=== PATIENT | female | born 1980 | race Caucasian/White ===

== ENCOUNTER → 2016-12-12 | Day surgery (SDC) | payer BC, OTHER ==
[~2016-12-12] MED LIST: APREPITANT 40 MG CAP ONE; BUPIVACAINE LIPOSOME PF 1.3% 20 ML VIAL ONE; BUPIVACAINE/EPINEPHRINE 0.25% PF 30 ML VIAL ONE; HYDR-3366 PO; IBUP-232 PO; KETOROLAC TROMETHAMINE 30 MG/ML (IVP) VIAL IV PUSH ONE; LACTATED RINGER'S 1,000 ML BAG IV ONE; LACTATED RINGER'S 1000 ML INJ 1,000 ML ONE; MIDAZOLAM HCL 2 MG/2 ML VIAL ONE; MORPHINE SULFATE 4 MG/ML INJ ONE; ONDANSETRON HCL 4 MG/2 ML VIAL IV PUSH ONE; OXYC1TAB63 PO; PROPOFOL 200 MG/20 ML AMP IV ONE; SODIUM CHLORIDE 0.9% INJ 10 ML ONE; ceFAZolin 2 GM PREMIX 50 ML ONE
--- NOTE | 2016-12-12 13:40 | TN ---
cc: SAURABH MÉNDEZ M.D. DATE OF SURGERY: 12/12/2016 PREOPERATIVE DIAGNOSIS Bilateral inguinal hernia and epigastric hernia. POSTOPERATIVE DIAGNOSIS Bilateral femoral hernia and epigastric hernia. PROCEDURE Laparoscopic repair bilateral inguinal hernia with mesh, open repair epigastric hernia with approximation of diastasis recti. SURGEON Dr. Saurabh Méndez. ANESTHESIA General. INDICATIONS A very pleasant 36-year-old woman who has had five full-term pregnancies, has developed inguinal and ventral supraumbilical bulges. Her bilateral inguinal hernia bulge is slightly larger on the left than the right. INTRAOPERATIVE FINDINGS Large left femoral hernia. Smaller yet present right femoral hernia. Small umbilical and epigastric hernias containing preperitoneal fatty tissue. Estimated blood loss was less than 5 mL. Periumbilical diastasis recti present and repaired with primary repair of epigastric and umbilical hernia defects. DESCRIPTION OF PROCEDURE IN DETAIL The patient was identified as Glenys Wen, taken to the operating room and placed in the supine position. Sequential compression devices were placed on bilateral lower extremities. Following induction of adequate general anesthesia the patient's abdomen was prepped and draped in usual sterile fashion with Betadine. A time-out procedure was performed. Following completion of time-out procedure to everyone's satisfaction within the room a proposed infraumbilical curvilinear incision was made with a marking pen and infiltrated with 0.25% Marcaine with epinephrine. The incision was carried out with a scalpel and immediately identified was herniated preperitoneal fatty tissue from a very small umbilical hernia defect. This was amputated using electrocautery and the anterior fascia on the left anterior rectus position was incised at its medial border of the rectus muscle. The preperitoneal plane was developed with surgeon's finger directed towards the pubic symphysis and a preperitoneal dissecting balloon was placed in preperitoneal space directed towards the pubic symphysis. Under direct laparoscopic view the balloon was inflated to a total of about 35 pumps which allowed for identification of bilateral inferior epigastric vessels and Christopher's ligaments. The balloon was desufflated and removed and the structural balloon trocar was placed in preperitoneal space, its balloon inflated with C02 insufflation until a level of 11 mmHg ensued. The patient was in slight Trendelenburg position. Immediately identified was a large rent in the peritoneum all the way across at about the level of the umbilicus. This allowed for development of a preperitoneal plane as well as visualization of intra-abdominal contents. Attention was turned first to the left side and blunt dissection allowed for identification of Christopher's ligament and reduction of the large amount of preperitoneal fatty tissue from the femoral hernia defect. The blunt dissection lateral and posterior to the round ligament on the left side was performed and adherent peritoneum was reduced to the base of the round ligament. There was no large direct or indirect defect, just a large femoral defect. Attention was then turned to the left side where similar blunt dissection ensued and actually finding of the femoral hernia defect with fatty tissue in it was identified. Again no large indirect or direct defect was identified. After ensuring that the peritoneal flap was large enough to broadly cover the mesh, 4 x 6 inch piece of atrium ProLite mesh was cut from a 6 x 6 inch piece placed surrounding the round ligament on the left side and tacked in position wit the pro-tack device. A single tack was used to approximate the anterolateral slit and tack was placed in Christopher's ligament in two places. A single tack was placed superior medially. The 2 x 6 inch piece of mesh was placed over the anterolateral slit and held in position with the pro-tack device with single tack at Christopher's ligament, a tack medial to the inferior epigastric vessel and one tack superolaterally. Attention was turned to the right side and then a similar mesh placement was performed with the atrium ProLite mesh, placing as few tacks as possible to tack the mesh in position and broadly cover the areas of concern. The peritoneum was then replaced to its position to cover the mesh so there was no contact between intra-abdominal contents and the mesh and as few tacks as possible was used to approximate the peritoneum to the anterior abdominal wall. The infraumbilical port balloon was desufflated and withdrawn enough so through the upper 5 mm port and through the intra-abdominal cavity the epigastric area could be evaluated. There was no full-thickness defect but with palpation where the bulge was is consistent with a preperitoneal fat herniating at the area adjacent to the falciform ligament. A diastasis could be seen in that location as well. Photographs were taken. The trocars were removed after instillation of 10 ccs of Exparel in the preperitoneal space. The abdomen was actively desufflated through the infraumbilical port, was then removed. The anterior rectus fascial incision was closed with running 2-0 Vicryl suture. Attention was then turned to identifying the epigastric hernia through the umbilical incision and due to the looseness of the patient's skin from recent this was able to be performed with only a slight extension of the infraumbilical incision on each side. Herniated preperitoneal fatty tissue was amputated with electrocautery and two small defects were identified. There was a bulge consistent with diastasis and the fascia was cleared of the overlying subcutaneous fatty tissue in this area. It was decided to approximate the diastasis to not only cover the hernia defects, but also to create a more normal anatomic abdominal wall and multiple interrupted inverted 2-0 PDS sutures were used to perform this portion of the procedure. This created a nice repair of her diastasis recti as well as imbrication of the midline fascia all the way through the umbilicus to repair both small umbilical as well as the epigastric hernia defects. The subcutaneous fatty tissue was approximated with interrupted 3-0 Vicryl sutures. The umbilicus was reformed with 3-0 Vicryl and skin incisions were all closed with 4-0 Monocryl subcuticular sutures. Dressings were applied with Mastisol, half-inch brown Steri-Strips, gauze and Tegaderm were placed within the umbilicus over the site of the epigastric hernia to reduce the chance of seroma formation. The patient tolerated the procedures without apparent complication. Sponge, needle and instrument counts were correct at the end of the case. An abdominal binder was placed. MD SOFIA Douglas/WENCESLAO /1:05 PM /1:22 PM
== END | disposition home or self-care (01) ==
LOC: ESDC 09:57
PROVIDERS: ATTEND Surgery Trauma Surgery
DX: K40.20 Bilateral inguinal hernia, without obstruction or gangrene, not specified as recurrent (principal); K43.9 Ventral hernia without obstruction or gangrene
CPT/HCPCS: 00750; 00840; 49570; 49650; C1727; C1781; C9290; J0690; J1885; J2250; J2270; J2405; J3010; J7120; J8501

== ENCOUNTER 2016-12-16 09:45 | Emergency (ER) | payer BC, OTHER ==
[~2016-12-16] VITALS: Ht 170.2 cm; Wt 60.1 kg
[~2016-12-16 09:45] MED LIST changes: -APREPITANT 40 MG CAP ONE; -BUPIVACAINE LIPOSOME PF 1.3% 20 ML VIAL ONE; -BUPIVACAINE/EPINEPHRINE 0.25% PF 30 ML VIAL ONE; -HYDR-3366 PO; -KETOROLAC TROMETHAMINE 30 MG/ML (IVP) VIAL IV PUSH ONE; -LACTATED RINGER'S 1,000 ML BAG IV ONE; -LACTATED RINGER'S 1000 ML INJ 1,000 ML ONE; -MIDAZOLAM HCL 2 MG/2 ML VIAL ONE; -MORPHINE SULFATE 4 MG/ML INJ ONE; -ONDANSETRON HCL 4 MG/2 ML VIAL IV PUSH ONE; -PROPOFOL 200 MG/20 ML AMP IV ONE; -SODIUM CHLORIDE 0.9% INJ 10 ML ONE; -ceFAZolin 2 GM PREMIX 50 ML ONE
[2016-12-16 09:48] VITALS: BP 140/105; PULSE 86; RESP 16; TEMP 99.1; O2SAT 98
[2016-12-16] MEDS ORDERED: HYDR-3366 PO (10:34)
--- NOTE | 2016-12-16 10:55 | PD ---
HPI Chief Complaint: Pain: Acute or Chronic Time Seen by Provider: 10:04 Travel History International Travel<30 days: No Contact w/Intl Traveler<30days: No Traveled to known affect area: No History of Present Illness HPI 36-year-old female with history of umbilical and femoral hernias, had hernia repair done by Dr. Ryan 5 days ago, and states that she had been doing regular activities when a few days ago, she started having right inguinal area pains, worsens with movement. She has not had bowel movement a few days but has not had any vomiting, abdominal tenderness, bloating, or any other symptoms. She states that her wounds otherwise or feeling better, and she reports no fevers or other symptoms. Pain at the right inguinal site is an 8 out of 10 with movements. She states the pain is so bad that it takes her breath away. However, she denies any chest pains, shortness of breath, or any other symptoms. Modifying Factors: Worse with movements Associated Signs & Symptoms: Right inguinal area pain, postop inguinal hernia repair Risk Factors: None PFSH Past Medical History Hx Anticoagulant Therapy: No Diabetes: No Diminished Hearing: No Influenza Vaccination: Yes ?: Not : 5 Para: 5 Past Surgical History Abdominal Surgery: Yes (EPIGASTRIC HERNIA AND BILATERAL INGINIAL) Social History Alcohol Use: No (RARELY) Tobacco Use: No (FORMER) Substance Use: No Allergies-Medications (Allergen,Severity, Reaction): Coded Allergies: Iodine (Verified Allergy, Severe, 12/16/16) Latex (Verified Allergy, Severe, 12/16/16) Reported Meds & Prescriptions Reported Meds & Active Scripts Active Reported Tumacacori (Hydrocodone-Acetaminophen) 10-325 Mg Tab 1 Tab PO Q6H PRN Review of Systems Except as stated in HPI: all other systems reviewed are Neg Physical Exam Narrative GENERAL: Well-nourished, well-developed pleasant white female patient in no acute distress. SKIN: Warm and dry. HEAD: Normocephalic. EYES: No scleral icterus. No injection or drainage. NECK: Supple, trachea midline. CARDIOVASCULAR: Regular rate and rhythm without murmurs, gallops, or rubs. RESPIRATORY: Breath sounds equal bilaterally. No accessory muscle use. GASTROINTESTINAL: Abdomen soft, non-tender, nondistended. Mildly tender to palpation of the right inguinal area. There is no notable ecchymosis, masses, or obvious hernia on Valsalva. Pulses are intact. Surgical wounds look clean, dry, intact with no signs of significant infection or bleeding. MUSCULOSKELETAL: No cyanosis, or edema. BACK: Nontender without obvious deformity. No CVA tenderness. Data Data Last Documented VS Vital Signs Date Time Temp Pulse Resp B/P Pulse Ox O2 Delivery O2 Flow Rate FiO2 12/16/16 10:27 86 16 12/16/16 09:48 99.1 140/105 98 MDM Medical Decision Making Medical Screen Exam Complete: Yes Emergency Medical Condition: Yes Medical Record Reviewed: Yes Differential Diagnosis Right inguinal hernia pain status post inguinal hernia surgerypostop pain versus recurrent hernia after surgery versus hematoma Narrative Course I do not see any signs of acute recurrent hernia or hematoma. Area shows no signs of infection, is mildly tender palpation, but is otherwise unremarkable for new hernia or hematoma. At this point, the case was discussed with Dr. Chamorro who is covering for Dr. Ryan. He states that the patient can follow-up in their office today or Monday. He will evaluate the patient for any further needs. Patient denies any shortness of breath at rest or exertion except related to the pain of her hernia. I do not think that she has a PE or other significant respiratory symptoms at this time. At this point, my plan would be to release her with follow-up to general surgery. Return for any worsening in pain or new symptoms as needed. The plan was discussed with the patient and she states understanding. Diagnosis Primary Impression: Postoperative pain, acute, groin Disposition: 01 DISCHARGE HOME Condition: Stable Jaonie Barnett MD Dec 16, 2016 10:55
== END 2016-12-16 11:11 | disposition home or self-care (01) ==
LOC: PHED 09:45
DX: G89.18 Other acute postprocedural pain (principal); Z87.891 Personal history of nicotine dependence
CPT/HCPCS: 99283